=== PATIENT | female | born 1960 | race Caucasian/White ===

== ENCOUNTER 2017-04-09 06:44 | Day surgery (SDC) | payer MEDICARE, MEDICAID ==
[2017-04-01 15:28] LABS: BASOPHILS % (AUTO) 0.4 % (0-1); EOSINOPHILS # (AUTO) 0.2 X10'3 (0-0.9); LYMPHOCYTES # (AUTO) 1.5 X10'3 (1.1-4.8); LYMPHOCYTES % (AUTO) 23.8 % (21-51); MEAN CORPUSCULAR HEMOGLOBIN 27.1 PG (27.0-31.0); MEAN CORPUSCULAR HGB CONC 32.7 % (33.0-36.5); MEAN CORPUSCULAR VOLUME 82.9 FL (78-98); MEAN PLATELET VOLUME 7.9 FL (7.4-10.4); MONOCYTES # (AUTO) 0.4 X10'3 (0-0.9); NEUTROPHILS # (AUTO) 4.1 X10'3 (1.8-7.7); NEUTROPHILS % (AUTO) 66.8 % (42-75); PRE OP HEMATOCRIT 38.1 % (35.0-45.0); PRE OP HEMOGLOBIN 12.5 g/dL (12.0-16.0); PRE OP PLATELET COUNT 179 X10'3 (140-440); RED CELL DISTRIBUTION WIDTH 16.1 % (11.5-14.5)
[2017-04-01 15:37] LABS: PRE OP PROTIME 18.2 SECONDS (9.0-12.0)
[2017-04-01 15:38] LABS: PRE OP INR 1.8 INR
[2017-04-01 15:44] LABS: ALBUMIN 3.5 G/DL (3.4-5.0); ALBUMIN/GLOBULIN RATIO 0.9 (1.1-1.5); ALKALINE PHOSPHATASE 80 IU/L (46-116); BLOOD UREA NITROGEN 19 MG/DL (7-18); BUN/CREATININE RATIO 19.6 (6.6-38.0); CALCIUM 8.9 MG/DL (8.5-10.1); CHLORIDE 104 MMOL/L (99-107); CREATININE 0.97 MG/DL (0.40-0.90); PRE OP ALT 24 U/L (30-65); PRE OP ANION GAP 6 (8-16); PRE OP AST 23 U/L (10-37); PRE OP BILIRUB, TOTAL 0.3 MG/DL (0.0-1.0); PRE OP GLUCOSE 92 MG/DL (70-104); PRE OP POTASSIUM 3.4 MMOL/L (3.4-5.1); PRE OP SODIUM 143 MMOL/L (135-145); TOTAL CARBON DIOXIDE 32.6 MMOL/L (24-32); TOTAL PROTEIN 7.2 G/DL (6.4-8.2); eGFR 59 ML/MIN
[~2017-04-09] VITALS: Ht 165.1 cm; Wt 106.7 kg
[~2017-04-09 06:44] MED LIST: ACET-1015 PO; ATOR10TA87 PO; BUPIVAcaine/PF 2.5 mg/ml (0.25%) 30ml vial ONE; CIPR-260 PO; COU5T PO; CYCL-394 PO; DOCU100C59 PO; DOCUMENT DATE & TIME OF BETA-BLOCKER PO ONE; ESTR2TAB5 PO; HYDR-565 PO; HYDR12.522 PO; LOP25T PO; LOSA25TA96 PO; clindamycin 600mg/D5W 50ml 50 ML IV ONE; famotidine 20mg tablet PO ONE; ringers solution, lacted 1,000 ML IV SCH; scopolamine 1.5mg patch.TD72 TD ONE
[2017-04-09 06:50] VITALS: BP 144/76
[2017-04-09 07:40] LABS: PRE OP PROTIME 15.3 SECONDS (9.0-12.0)
[2017-04-09 08:01] LABS: PRE OP INR 1.5 INR
[2017-04-09 08:13] VITALS: BP 144/76
[2017-04-09] MEDS ORDERED: LIDOcaine 0.5% (5mg/ml) 50ml vial ONE (08:32)
[2017-04-09] MEDS ORDERED: fentaNYL/PF 50MCG/1 ML 2ML syringe ONE ×2 (08:36→08:56)
[2017-04-09] MEDS ORDERED: MIDAZolam 5mg/5ml vial ONE (08:36)
[2017-04-09] MEDS ORDERED: meperidine/PF 25mg/ml syringe IV PRN ×3 (09:15)
[2017-04-09] MEDS ORDERED: ondansetron/PF 4mg/2ml inj IV PRN (09:15)
[2017-04-09] MEDS ORDERED: ringers solution, lacted 1,000 ML IV SCH (09:15)
[2017-04-09] MEDS ORDERED: glycopyrrolate 0.2mg/ml inj ONE (09:23)
[2017-04-09] MEDS ORDERED: diphenhydrAMINE 50 mg/ml inj ONE (09:23)
[2017-04-09 09:27] VITALS: BP 131/87
[2017-04-09 09:37] VITALS: BP 105/70
[2017-04-09 09:47] VITALS: BP 124/73
[2017-04-09 09:57] VITALS: BP 122/77
== END 2017-04-09 10:07 | disposition home or self-care (01) ==
LOC: PAS 06:44
PROVIDERS: ATTEND Orthopaedic Surgery Hand Surgery
DX: M18.12 Unilateral primary osteoarthritis of first carpometacarpal joint, left hand (principal); Z87.891 Personal history of nicotine dependence; G43.909 Migraine, unspecified, not intractable, without status migrainosus; F41.8 Other specified anxiety disorders
CPT/HCPCS: 25447; 26483; 36415; 80053; 85025; 85610; 85730; 93005; A6222; A6449; J1200; J2001; J2250; J3010; J3490; J7120; A7000

== ENCOUNTER 2019-12-01 05:29 | Day surgery (SDC) | payer MEDICARE, MEDICAID ==
[2019-11-24 09:55] LABS: BASOPHILS % (AUTO) 0.8 % (0-1); EOSINOPHILS # (AUTO) 0.2 X10'3 (0-0.9); EOSINOPHILS % (AUTO) 3.3 % (0-6); LYMPHOCYTES # (AUTO) 1.2 X10'3 (1.1-4.8); LYMPHOCYTES % (AUTO) 21.2 % (21-51); MEAN CORPUSCULAR HEMOGLOBIN 27.4 PG (27.0-31.0); MEAN CORPUSCULAR VOLUME 82.9 FL (78-98); MONOCYTES # (AUTO) 0.4 X10'3 (0-0.9); MONOCYTES % (AUTO) 6.8 % (2-12); NEUTROPHILS # (AUTO) 3.9 X10'3 (1.8-7.7); NEUTROPHILS % (AUTO) 67.9 % (42-75); PRE OP HEMATOCRIT 41.2 % (35.0-45.0); PRE OP HEMOGLOBIN 13.6 g/dL (12.0-16.0); PRE OP PLATELET COUNT 179 X10'3 (140-440); RED BLOOD COUNT 4.96 X10'6 (4.20-5.60); RED CELL DISTRIBUTION WIDTH 15.3 % (11.5-14.5)
[2019-11-24 09:57] LABS: CLARITY,URINE CLEAR (Clear); COLOR,URINE STRAW (Yellow); GLUCOSE, URINE NEGATIVE (Neg); KETONES,URINE NEGATIVE (Neg); LEUKOCYTE ESTERASE ,URINE NEGATIVE (Neg); NITRITES, URINE NEGATIVE (Neg); OCCULT BLOOD,URINE SMALL (Neg); PH,URINE 7.5 (4.8-8.0); PROTEIN,URINE NEGATIVE (Neg); UROBILINOGEN,URINE 0.2 E.U/dL (0.2-1.0)
[2019-11-24 10:00] LABS: UA COLLECTION TYPE CLN CATCH MIDSTREAM
[2019-11-24 10:03] LABS: BACTERIA,URINE NONE SEEN /HPF (Neg); MUCUS STRANDS NONE SEEN /LPF (Neg); RBC,URINE 0-2 /HPF (0-2); SQUAMOUS EPITHELIAL CELL,UR FEW /LPF (FEW); WBC,URINE NONE SEEN /HPF (0-4)
[2019-11-24 10:10] LABS: ALBUMIN 3.8 G/DL (3.4-5.0); ALKALINE PHOSPHATASE 73 IU/L (46-116); BLOOD UREA NITROGEN 21 MG/DL (7-18); BUN/CREATININE RATIO 22.1 (6.6-38.0); CHLORIDE 104 MMOL/L (99-107); CREATININE 0.95 MG/DL (0.40-0.90); PRE OP ALT 26 U/L (30-65); PRE OP ANION GAP 6 (8-16); PRE OP AST 27 U/L (10-37); PRE OP BILIRUB, TOTAL 0.5 MG/DL (0.0-1.0); PRE OP GLUCOSE 95 MG/DL (70-104); PRE OP POTASSIUM 3.5 MMOL/L (3.4-5.1); PRE OP SODIUM 142 MMOL/L (135-145); TOTAL CARBON DIOXIDE 32.2 MMOL/L (24-32); TOTAL PROTEIN 7.5 G/DL (6.4-8.2); eGFR 60 ML/MIN
[~2019-12-01] VITALS: Ht 165.1 cm; Wt 108.9 kg
[2019-12-01] VITALS (13 sets, daily range): BP systolic 116–163; BP diastolic 64–91
[~2019-12-01 05:29] MED LIST changes: -BUPIVAcaine/PF 2.5 mg/ml (0.25%) 30ml vial ONE; -COU5T PO; -DOCUMENT DATE & TIME OF BETA-BLOCKER PO ONE; -ESTR2TAB5 PO; -HYDR-565 PO; -LOP25T PO; +WARF-113 PO; -clindamycin 600mg/D5W 50ml 50 ML IV ONE; -famotidine 20mg tablet PO ONE; -scopolamine 1.5mg patch.TD72 TD ONE
[2019-12-01] MEDS ORDERED: ceFAZolin 2gm in dextrose, iso 50 ML IV ONE (05:30)
[2019-12-01] MEDS ORDERED: famotidine 20mg tablet PO ONE (05:30)
[2019-12-01] MEDS ORDERED: scopolamine 1.5mg patch.TD72 TD ONE (06:15)
[2019-12-01] MEDS ORDERED: LIDOcaine 1% (10mg/ml) 2ml vial ONE (06:27)
[2019-12-01] MEDS ORDERED: bacitracin 15gm ointment TP ONE (06:40)
[2019-12-01] MEDS ORDERED: sevoflurane 250ml liquid IH ONE (06:46)
[2019-12-01] MEDS ORDERED: fentaNYL/PF 50MCG/1 ML 2ML syringe ONE (06:50)
[2019-12-01] MEDS ORDERED: MIDAZolam 5mg/5ml vial ONE (06:50)
[2019-12-01 07:12] LABS: PRE OP INR 1.1 INR; PRE OP PROTIME 11.1 SECONDS (9.0-12.0)
[2019-12-01] MEDS ORDERED: fentaNYL /PF 50mcg/ml 5ml ampule ONE (07:17)
[2019-12-01] MEDS ORDERED: BUPIVAcaine/PF 2.5 mg/ml (0.25%) 30ml vial ONE (07:30)
[2019-12-01] MEDS ORDERED: ringers solution, lacted 1,000 ML IV SCH (07:42)
[2019-12-01] MEDS ORDERED: meperidine/PF 25mg/ml syringe IV PRN ×2 (07:45)
[2019-12-01] MEDS ORDERED: morphine 4 MG/ML inj SYRINge IV PRN (07:45)
[2019-12-01] MEDS ORDERED: proCHLORperazine 10 MG/2 ml inj IV PRN (07:45)
[2019-12-01] MEDS ORDERED: ondansetron/PF 4mg/2ml inj IV PRN (07:45)
[2019-12-01] MEDS ORDERED: morphine 2 MG/ML inj. syringe IV PRN (07:45)
--- NOTE | 2019-12-01 08:42 | NUR ---
RECEIVED FROM OR VIA [facility] ACCOMPANIED BY ANESTHESIOLOGIST DR LUIS, REPORT GIVEN.PT DROWSY BUT AWAKENS AND DENIES PAIN AT THIS TIME. 20 GAUGE PIV L WRIST PATENT AND RUNNING LR AT 100 ML/HR. LLE DRESSING CDI, BRISK CAP REFILL, SKIN PINK AND WARM, DUNN,VSS, FOOT OF BED ELEVATED AND ICE APPLIED. PT RESTING COMFORTABLY.
[2019-12-01] MEDS ORDERED: neostigmine methylsulfate 1 MG/ML 10ml vial ONE (08:54)
[2019-12-01] MEDS ORDERED: rocuronium 10mg/ml inj IV ONE (08:54)
[2019-12-01] MEDS ORDERED: glycopyrrolate 0.2mg/ml inj ONE (08:54)
[2019-12-01] MEDS ORDERED: LIDOcaine 2% (20mg/ml) 5ml vial ONE (08:54)
[2019-12-01] MEDS ORDERED: ondansetron/PF 4mg/2ml inj ONE (08:54)
[2019-12-01] MEDS ORDERED: propofol inj 20 ML IV ONE (08:54)
[2019-12-01] MEDS ORDERED: dexamethasone sod phosphate 4mg/ml inj. ONE (08:54)
[2019-12-01] MEDS: meperidine/PF 25mg/ml syringe IV PRN ×3 (09:02→09:35)
--- NOTE | 2019-12-01 10:42 | NUR ---
PT AWAKE AND ALERT WITH PAIN LEVEL OF 3-4 AT THIS TIME. TOLERATING FLUIDS WELL, ABLE TO DRESS AND AMBULATE WITH CRUTCHES. 20 GAUGE PIV L WRIST DC/D CATH TIP INTACT. LLE DRESSING CDI, BRISK CAP REFILL, SKIN PINK AND WARM, DUNN,VSS. DISCHARGE INSTRUCTIONS GIVEN AND PT VERBALIZED UNDERSTANDING. TRANSPORTED VIA WHEELCHAIR TO SIG OTHER IN PRIVATE VEHICLE TO HOME.
== END 2019-12-01 10:42 | disposition home or self-care (01) ==
LOC: PAS 05:29
PROVIDERS: ATTEND Podiatrist Foot & Ankle Surgery
DX: M76.62 Achilles tendinitis, left leg (principal); M92.62 Juvenile osteochondrosis of tarsus, left ankle; G89.18 Other acute postprocedural pain; I10 Essential (primary) hypertension; F41.9 Anxiety disorder, unspecified; G43.909 Migraine, unspecified, not intractable, without status migrainosus; M19.90 Unspecified osteoarthritis, unspecified site; E66.9 Obesity, unspecified; Z68.39 Body mass index [BMI] 39.0-39.9, adult; Z79.01 Long term (current) use of anticoagulants; Z79.899 Other long term (current) drug therapy; Z20.828 Contact with and (suspected) exposure to other viral communicable diseases; Z87.891 Personal history of nicotine dependence; Z86.73 Personal history of transient ischemic attack (TIA), and cerebral infarction without residual deficits; Z90.710 Acquired absence of both cervix and uterus; Z96.653 Presence of artificial knee joint, bilateral; Z98.890 Other specified postprocedural states; Z88.2 Allergy status to sulfonamides; Z88.8 Allergy status to other drugs, medicaments and biological substances; Z72.89 Other problems related to lifestyle
CPT/HCPCS: 27650; 28119; 36415; 73620; 76000; 80053; 81001; 82948; 85025; 85610; 85730; 87635; 93005; A6223; C1713; J1100; J2001; J2175; J2250; J2405; J2704; J2710; J3010; J3490; J7120; A4215; A4618; A6253; A6449; A7000

== ENCOUNTER 2019-12-05 21:06 | Emergency (ER) | payer MEDICARE, MEDICAID ==
[~2019-12-05] VITALS: Ht 165.1 cm; Wt 104.5 kg
[~2019-12-05 21:06] MED LIST changes: -ringers solution, lacted 1,000 ML IV SCH
[2019-12-05] MEDS ORDERED: ondansetron 4mg rapidly disintigrating tab PO ONE (21:55)
[2019-12-05] MEDS ORDERED: HYDROcodone/acetaminophen 10/325mg tab PO ONE (21:55)
[2019-12-05 22:22] VITALS: BP 143/80
[2019-12-05 22:34] LABS: BASOPHILS % (AUTO) 0.6 % (0-1); EOSINOPHILS # (AUTO) 0.3 X10'3 (0-0.9); EOSINOPHILS % (AUTO) 4.4 % (0-6); HEMATOCRIT 38.8 % (35.0-45.0); HEMOGLOBIN 12.8 g/dl (12.0-16.0); LYMPHOCYTES # (AUTO) 1.3 X10'3 (1.1-4.8); LYMPHOCYTES % (AUTO) 17.4 % (21-51); MEAN CORPUSCULAR HEMOGLOBIN 27.3 PG (27.0-31.0); MEAN CORPUSCULAR HGB CONC 32.9 g/dL (33.0-36.5); MEAN CORPUSCULAR VOLUME 83.1 FL (78-98); MEAN PLATELET VOLUME 8.3 FL (7.4-10.4); MONOCYTES # (AUTO) 0.5 X10'3 (0-0.9); MONOCYTES % (AUTO) 6.9 % (2-12); NEUTROPHILS # (AUTO) 5.2 X10'3 (1.8-7.7); NEUTROPHILS % (AUTO) 70.7 % (42-75); PLATELET COUNT 207 X10'3 (140-440); RED BLOOD COUNT 4.67 X10'6 (4.20-5.60); RED CELL DISTRIBUTION WIDTH 15.4 % (11.5-14.5); WHITE BLOOD COUNT 7.3 X10'3 (4.5-11.0)
== END 2019-12-05 22:57 | disposition home or self-care (01) ==
LOC: ER 21:07
DX: Z48.00 Encounter for change or removal of nonsurgical wound dressing (principal); Z98.890 Other specified postprocedural states; Z88.1 Allergy status to other antibiotic agents; Z88.8 Allergy status to other drugs, medicaments and biological substances; Z79.899 Other long term (current) drug therapy
CPT/HCPCS: 36415; 84145; 85025; 99283

== ENCOUNTER 2021-02-14 14:26 | Emergency (ER) | payer MEDICARE, MEDICAID | END 2021-02-14 14:43 | disposition left against medical advice (07) | LOC: ER 14:30 | DX: F41.9 Anxiety disorder, unspecified (principal); Z53.21 Procedure and treatment not carried out due to patient leaving prior to being seen by health care provider ==

== ENCOUNTER 2021-05-19 05:38 | Day surgery (SDC) | payer MEDICARE, MEDICAID ==
[2021-05-12 12:20] LABS: BASOPHILS # (AUTO) 0.1 X10'3 (0-0.2); BASOPHILS % (AUTO) 0.9 % (0-1); EOSINOPHILS # (AUTO) 0.2 X10'3 (0-0.9); EOSINOPHILS % (AUTO) 2.5 % (0-6); LYMPHOCYTES # (AUTO) 1.1 X10'3 (1.1-4.8); LYMPHOCYTES % (AUTO) 17.4 % (21-51); MEAN CORPUSCULAR HEMOGLOBIN 27.5 PG (27.0-31.0); MEAN CORPUSCULAR VOLUME 83.1 FL (78-98); MEAN PLATELET VOLUME 7.8 FL (7.4-10.4); MONOCYTES # (AUTO) 0.4 X10'3 (0-0.9); MONOCYTES % (AUTO) 6.6 % (2-12); NEUTROPHILS # (AUTO) 4.6 X10'3 (1.8-7.7); NEUTROPHILS % (AUTO) 72.6 % (42-75); PRE OP HEMATOCRIT 41.3 % (35.0-45.0); PRE OP HEMOGLOBIN 13.6 g/dL (12.0-16.0); PRE OP PLATELET COUNT 200 X10'3 (140-440); RED BLOOD COUNT 4.97 X10'6 (4.20-5.60); RED CELL DISTRIBUTION WIDTH 15.3 % (11.5-14.5)
[2021-05-12 12:53] LABS: ALBUMIN 3.6 G/DL (3.4-5.0); ALKALINE PHOSPHATASE 82 IU/L (46-116); BLOOD UREA NITROGEN 25 MG/DL (7-18); BUN/CREATININE RATIO 33.8 (6.6-38.0); CHLORIDE 104 MMOL/L (99-107); CREATININE 0.74 MG/DL (0.40-0.90); PRE OP ALT 24 U/L (30-65); PRE OP ANION GAP 8 (8-16); PRE OP AST 19 U/L (10-37); PRE OP BILIRUB, TOTAL 0.3 MG/DL (0.0-1.0); PRE OP GLUCOSE 91 MG/DL (70-104); PRE OP POTASSIUM 3.6 MMOL/L (3.4-5.1); PRE OP SODIUM 143 MMOL/L (135-145); TOTAL CARBON DIOXIDE 31.1 MMOL/L (24-32); TOTAL PROTEIN 7.1 G/DL (6.4-8.2); eGFR 80 ML/MIN
[~2021-05-19] VITALS: Ht 165.1 cm; Wt 113.4 kg
[2021-05-19] VITALS (8 sets, daily range): BP systolic 111–158; BP diastolic 62–100
[~2021-05-19 05:38] MED LIST changes: -ACET-1015 PO; +APIX5TAB3 PO; -CIPR-260 PO; -CYCL-394 PO; -WARF-113 PO; +cefazolin/dext.iso 2gm/50ml IV ONE; +famotidine 20mg tablet PO ONE; +ringers solution, lacted 1,000 ML IV SCH; +scopolamine 1mg/72 hr patch TD ONE
[2021-05-19] MEDS ORDERED: BUPIVAcaine 0.5% inj/PF 30 ML ONE (06:46)
[2021-05-19] MEDS ORDERED: MIDAZolam 1 MG/ML 5ML VIAL ONE ×2 (07:40→08:10)
[2021-05-19] MEDS ORDERED: fentaNYL/PF 50MCG/1 ML 2ML syringe ONE (07:40)
[2021-05-19] MEDS ORDERED: ketorolac trometh. 30mg/ml inj. ONE (07:49)
[2021-05-19] MEDS ORDERED: BUPIVAcaine 0.5% inj/PF 30 ml vial IJ ONE (08:16)
[2021-05-19] MEDS ORDERED: ketamine 50mg/5ml syringe ONE (08:34)
--- NOTE | 2021-05-19 08:42 | NUR ---
Received from OR via , accompanied by Anesthesiologist DR FABIAN and report given by Anesthesiolgist. PT PRESENTS WITH 20 G LEFT WRIST, DRESSING ON RIGHT HAND CLEAN DRY AND INTACT. VSS. Addendum: 05/19/21 at 0904 by Ava Stratton RN, RN Amended: Links added.
[2021-05-19] MEDS ORDERED: HYDROcodone/acetaminophen 5mg/325mg tablet PO ONE (09:10)
--- NOTE | 2021-05-19 09:42 | NUR ---
I HAVE REVIEWED D/C INSTRUCTIONS WITH PATIENT AND THEY HAVE VERBALIZED UNDERSTANDING OF INSTRUCTIONS. PATIENT D/C HOME WITH ALL BELONGINGS AND FAMILY GAVE TRANSPORT Addendum: 05/19/21 at 9255 by Ava Stratton RN, RN Amended: Links added.
== END 2021-05-19 09:42 | disposition home or self-care (01) ==
LOC: PAS 05:38
PROVIDERS: ATTEND Orthopaedic Surgery Hand Surgery
DX: M18.11 Unilateral primary osteoarthritis of first carpometacarpal joint, right hand (principal); M19.042 Primary osteoarthritis, left hand; F41.9 Anxiety disorder, unspecified; E66.01 Morbid (severe) obesity due to excess calories; Z68.41 Body mass index [BMI] 40.0-44.9, adult; Z79.899 Other long term (current) drug therapy; Z79.01 Long term (current) use of anticoagulants; Z88.2 Allergy status to sulfonamides; Z88.1 Allergy status to other antibiotic agents; Z88.8 Allergy status to other drugs, medicaments and biological substances; Z98.890 Other specified postprocedural states; Z72.89 Other problems related to lifestyle; Z98.1 Arthrodesis status; Z96.653 Presence of artificial knee joint, bilateral; Z90.710 Acquired absence of both cervix and uterus; Z86.718 Personal history of other venous thrombosis and embolism; Z87.891 Personal history of nicotine dependence; Z20.822 Contact with and (suspected) exposure to COVID-19
CPT/HCPCS: 25310; 25447; 36415; 80053; 82948; 85025; 93005; A6222; J0690; J1885; J2250; J3010; J3490; J7030; J7120; S0020; U0003; U0005; Z7506; Z7508; Z7512; A4215; A4618; A7000

== ENCOUNTER 2022-04-19 15:53 | Emergency (ER) | payer MEDICARE, MEDICAID ==
[~2022-04-19] VITALS: Ht 165.1 cm; Wt 104.0 kg
[~2022-04-19 15:53] MED LIST changes: -cefazolin/dext.iso 2gm/50ml IV ONE; -famotidine 20mg tablet PO ONE; -ringers solution, lacted 1,000 ML IV SCH; -scopolamine 1mg/72 hr patch TD ONE
[2022-04-19] MEDS ORDERED: HYDROcodone/acetaminophen 5mg/325mg tablet PO ONE (19:05)
[2022-04-19] MEDS ORDERED: ondansetron 4mg rapidly disintigrating tab PO ONE (19:05)
[2022-04-19 19:06] VITALS: BP 156/87
[2022-04-19] MEDS ORDERED: dexamethasone sod phosphate 10mg/ml inj PO STA (19:29)
[2022-04-19] MEDS ORDERED: ONDA4TAB12 PO (19:31)
[2022-04-19] MEDS ORDERED: HYDR-3965 PO (19:31)
== END 2022-04-19 19:42 | disposition home or self-care (01) ==
LOC: ER 15:54
DX: M54.32 Sciatica, left side (principal); M79.605 Pain in left leg; Z98.890 Other specified postprocedural states; Z88.8 Allergy status to other drugs, medicaments and biological substances; Z88.2 Allergy status to sulfonamides; Z79.01 Long term (current) use of anticoagulants; Z79.899 Other long term (current) drug therapy
CPT/HCPCS: 73502; 73560; 93971; 99284; J1100

== ENCOUNTER 2023-12-24 16:54 | Emergency (ER) | payer MEDICARE, MEDICAID ==
[~2023-12-24] VITALS: Ht 165.1 cm; Wt 133.4 kg
[~2023-12-24 16:54] MED LIST changes: +LOSA-415 PO; -LOSA25TA96 PO; +ONDA-243 PO
[2023-12-24 18:36] VITALS: PULSE 69
[2023-12-24] MEDS: oxyCODONE/APAP 5-325mg tablet PO ONE (18:47)
[2023-12-24 19:09] LABS: BASOPHILS % (AUTO) 0.6 % (0-1); EOSINOPHILS # (AUTO) 0.3 X10'3 (0-0.9); EOSINOPHILS % (AUTO) 4.7 % (0-6); HEMATOCRIT 36.5 % (35.0-45.0); HEMOGLOBIN 11.9 g/dl (12.0-16.0); LYMPHOCYTES # (AUTO) 1.2 X10'3 (1.1-4.8); LYMPHOCYTES % (AUTO) 16.3 % (21-51); MEAN CORPUSCULAR HEMOGLOBIN 27.3 PG (27.0-31.0); MEAN CORPUSCULAR HGB CONC 32.5 g/dL (33.0-36.5); MEAN PLATELET VOLUME 8.1 FL (7.4-10.4); MONOCYTES # (AUTO) 0.5 X10'3 (0-0.9); MONOCYTES % (AUTO) 7.5 % (2-12); NEUTROPHILS # (AUTO) 5.1 X10'3 (1.8-7.7); NEUTROPHILS % (AUTO) 70.9 % (42-75); PLATELET COUNT 168 X10'3 (140-440); RED BLOOD COUNT 4.34 X10'6 (4.20-5.60); RED CELL DISTRIBUTION WIDTH 16.5 % (11.5-14.5); WHITE BLOOD COUNT 7.2 X10'3 (4.5-11.0)
[2023-12-24 19:18] LABS: ALANINE AMINOTRANSFERASE 27 U/L (12-78); ALBUMIN 3.1 G/DL (3.4-5.0); ALBUMIN/GLOBULIN RATIO 0.9 (1.1-1.5); ANION GAP 6 (8-16); ASPARTATE AMINO TRANSFERASE 25 U/L (10-37); BILIRUBIN,TOTAL 0.3 MG/DL (0.1-1.0); BLOOD UREA NITROGEN 18 MG/DL (7-18); BUN/CREATININE RATIO 18.4 (10.0-20.0); CALCIUM 8.8 MG/DL (8.5-10.1); CHLORIDE 103 MMOL/L (99-107); CREATININE 0.98 MG/DL (0.40-0.90); GLUCOSE 116 MG/DL (70-104); POTASSIUM 3.5 MMOL/L (3.5-5.1); SODIUM 142 MMOL/L (135-145); TOTAL CARBON DIOXIDE 33.4 MMOL/L (24-32); TOTAL PROTEIN 6.7 G/DL (6.4-8.2); eCRCL 52 ML/MIN; eGFR 57 ML/MIN
[2023-12-24 19:19] LABS: ALKALINE PHOSPHATASE 78 IU/L (46-116)
[2023-12-24] MEDS ORDERED: OXYC-145 PO (19:47)
[2023-12-24 20:21] VITALS: BP 137/78; RESP 15; TEMP 97.5; O2SAT 100
== END 2023-12-24 20:23 | disposition home or self-care (01) ==
LOC: ER 16:57
DX: G89.18 Other acute postprocedural pain (principal); M79.672 Pain in left foot; Z88.8 Allergy status to other drugs, medicaments and biological substances; Z88.5 Allergy status to narcotic agent; Z88.2 Allergy status to sulfonamides; Z88.1 Allergy status to other antibiotic agents; Z79.899 Other long term (current) drug therapy
CPT/HCPCS: 36415; 80053; 85025; 99284

== ENCOUNTER 2024-01-28 15:16 | Emergency (ER) | payer MEDICARE, MEDICAID ==
[~2024-01-28] VITALS: Ht 165.1 cm; Wt 122.7 kg
[~2024-01-28 15:16] MED LIST changes: +OXYC-145 PO
[2024-01-28 16:18] LABS: BASOPHILS # (AUTO) 0.1 X10'3 (0-0.2); EOSINOPHILS # (AUTO) 0.2 X10'3 (0-0.9); EOSINOPHILS % (AUTO) 3.3 % (0-6); HEMATOCRIT 39.7 % (35.0-45.0); HEMOGLOBIN 12.8 g/dl (12.0-16.0); LYMPHOCYTES # (AUTO) 1.3 X10'3 (1.1-4.8); LYMPHOCYTES % (AUTO) 20.4 % (21-51); MEAN CORPUSCULAR HEMOGLOBIN 27.1 PG (27.0-31.0); MEAN CORPUSCULAR HGB CONC 32.2 g/dL (33.0-36.5); MEAN CORPUSCULAR VOLUME 84.1 FL (78-98); MEAN PLATELET VOLUME 8.1 FL (7.4-10.4); MONOCYTES # (AUTO) 0.4 X10'3 (0-0.9); MONOCYTES % (AUTO) 6.7 % (2-12); NEUTROPHILS # (AUTO) 4.3 X10'3 (1.8-7.7); NEUTROPHILS % (AUTO) 68.6 % (42-75); PLATELET COUNT 182 X10'3 (140-440); RED BLOOD COUNT 4.72 X10'6 (4.20-5.60); RED CELL DISTRIBUTION WIDTH 16.7 % (11.5-14.5); WHITE BLOOD COUNT 6.2 X10'3 (4.5-11.0)
[2024-01-28 16:28] LABS: ALBUMIN 3.3 G/DL (3.4-5.0); ANION GAP 6 (8-16); BLOOD UREA NITROGEN 21 MG/DL (7-18); BUN/CREATININE RATIO 17.4 (10.0-20.0); CALCIUM 8.5 MG/DL (8.5-10.1); CHLORIDE 103 MMOL/L (99-107); CREATININE 1.21 MG/DL (0.40-0.90); GLUCOSE 127 MG/DL (70-104); POTASSIUM 3.6 MMOL/L (3.5-5.1); SODIUM 141 MMOL/L (135-145); TOTAL CARBON DIOXIDE 31.8 MMOL/L (24-32); eCRCL 42 ML/MIN; eGFR 45 ML/MIN
[2024-01-28 20:05] VITALS: BP 150/90; PULSE 100; RESP 15; O2SAT 97
[2024-01-28 20:26] VITALS: TEMP 98.6
== END 2024-01-28 20:30 | disposition home or self-care (01) ==
LOC: ER 15:17
DX: G89.18 Other acute postprocedural pain (principal); M79.605 Pain in left leg; Z88.5 Allergy status to narcotic agent; Z88.8 Allergy status to other drugs, medicaments and biological substances; Z88.2 Allergy status to sulfonamides; Z79.899 Other long term (current) drug therapy; Z88.1 Allergy status to other antibiotic agents
CPT/HCPCS: 36415; 80048; 84145; 85025; 99283; A6258; A6449